=== PATIENT | male | born 1965 | race Caucasian/White ===

== ENCOUNTER 2016-11-20 09:36 | Emergency (ER) | payer OTHER ==
[~2016-11-20] VITALS: Ht 167.6 cm; Wt 78.0 kg
[2016-11-20 09:50] VITALS: Ht 167.6 cm; Wt 78.0 kg
[2016-11-20] MEDS ORDERED: ONDANSETRON 4 MG INJ IV STA (10:57)
[2016-11-20] MEDS ORDERED: SOD CHLORIDE 0.9% 1,000 ML IV STA (10:57)
[2016-11-20] MEDS ORDERED: KETOROLAC 30 MG INJ IV STA (10:57)
[2016-11-20 11:56] LABS: ADD SCAN DIFF NO
[2016-11-20 12:15] LABS: ALBUMIN 4.7 g/dl (3.3-4.9)
[2016-11-20 12:16] LABS: POTASSIUM 3.8 mmol/L (3.5-5.1)
[2016-11-20 12:18] LABS: ALBUMIN/GLOBULIN RATIO 1.38; BILIRUBIN,INDIRECT 0.3 mg/dl (0-1.1); BILIRUBIN,TOTAL 0.3 mg/dl (0.2-1.3); CREATININE 0.69 mg/dl (0.61-1.24); TOTAL PROTEIN 8.1 g/dl (6.1-8.1)
[2016-11-20 12:19] LABS: CALCIUM 9.2 mg/dl (8.4-10.2)
[2016-11-20 12:27] LABS: BASOPHILS % 0.4 % (0.0-2.0); EOSINOPHILS # 0.1 10^3/ul (0.0-0.5); EOSINOPHILS % 1.1 % (0.0-7.0); HEMATOCRIT 43.9 % (42.0-52.0); HEMOGLOBIN 14.7 g/dl (14.0-18.0); LYMPHOCYTES % 26.5 % (15.0-51.0); MEAN CORPUSCULAR HEMOGLOBIN 30.9 pg (29.0-33.0); MEAN CORPUSCULAR HGB CONC 33.5 g/dl (32.0-37.0); MEAN CORPUSCULAR VOLUME 92.2 fl (82.0-101.0); MEAN PLATELET VOLUME 10.1 fl (7.4-10.4); MONOCYTE # 0.6 10^3/ul (0.3-0.9); MONOCYTES % 8.4 % (0.0-11.0); NEUTROPHIL # 4.7 10^3/ul (1.6-7.5); NEUTROPHILS % 63.3 % (39.0-77.0); PLATELET COUNT 439 10^3/UL (140-415); RED BLOOD COUNT 4.76 10^6/ul (4.70-6.10); RED CELL DISTRIBUTION WIDTH 12.7 % (11.5-14.5); WHITE BLOOD COUNT 7.5 10^3/ul (4.8-10.8)
[2016-11-20 12:28] LABS: ADD UMIC NO; URINE BILIRUBIN (Dip) NEGATIVE (NEGATIVE); URINE BLOOD (Dip) NEGATIVE (NEGATIVE); URINE COLOR LT. YELLOW (YELLOW); URINE GLUCOSE (Dip) >=1000 % (NEGATIVE); URINE KETONES (Dip) NEGATIVE (NEGATIVE); URINE LEUKOCYTE ESTERASE (Dip) NEGATIVE (NEGATIVE); URINE NITRITE (Dip) NEGATIVE (NEGATIVE); URINE TOTAL PROTEIN (Dip) NEGATIVE (NEGATIVE); URINE UROBILINOGEN (Dip) 0.2 E.U./dL (0.1-1.0)
--- NOTE | 2016-11-20 13:28 | RADRPT ---
PROCEDURE: CT Abdomen and Pelvis without contrast. CLINICAL INDICATION: Abdominal pain. TECHNIQUE: CT scan of the abdomen and pelvis without contrast was performed on a multidetector hig h-resolution CT scanner. The patient was scanned without intravenous contrast. Coronal and sagittal reformatted images were obtained from the axial source images. Images were reviewed on a high-resol [employer] PACS workstation. One or more of the following dose reduction techniques were used: Automated exposure control, adjustment of the mA and/or kV according to patient size, use of iterative recon struction technique. The total exam CTDI equals 12.8 mGy and the total exam DLP equals 791.89 mGy-c m. COMPARISON: None. FINDINGS: CT abdomen: The lung bases are clear. The heart size is normal, without pericardial thickening or effusion. The liver is normal in size and density without focal mass or intrahepatic biliary dilatation. The spleen is normal in size and homogeneous in density. The stomach is grossly unremarkable. The panc reas as visualized is normal. The gallbladder and biliary tree are unremarkable and there is no seema dence for biliary dilatation. The adrenal glands are symmetric and normal. There is a 2 mm nonobst ructive calculus at the inferior pole of the right kidney. A small 1.4 cm hypodense lesion in the le ft kidney is consistent with a small cyst. There is a small 6 mm hypodense lesion in the superior p ole of the left kidney. Otherwise, the kidneys are symmetrically unremarkable as well. No obstruct emma uropathy or mass lesion is seen. The aorta is of normal caliber. There is no retroperitoneal lymphadenopathy. The dora hepatis reg ion is clear. The small bowel and mesentery, as visualized, are unremarkable. CT pelvis: The small bowel loops situated within the pelvis are unremarkable. The prostate is enlarged measuri ng 4.8 x 5.6 x 5.1 cm. The pelvic sidewalls and inguinal regions are clear. The sigmoid colon and rectum are unremarkable. The appendix is normal. No mass, lymphadenopathy, or free fluid is seen. N o acute inflammation is seen. There are small bilateral fat containing inguinal hernias. Degenerative changes are present throughout the lumbar spine, worst at L5 - S1 with posterior disk o steophyte complex, facet arthropathy, and uncovertebral degenerative changes resulting in severe coco ateral neural foraminal narrowing. No osteolytic or osteoblastic lesion is detected. IMPRESSION: 1. No abdominal or pelvic acute inflammatory process, mass, or lymphadenopathy. 2. Small nonobstructive right renal calculus. 3. Small hypodense left renal lesion likely representing a simple cyst. A small 6 mm hypodense lef t renal lesion may represent a hemorrhagic cyst. 4. Severe degenerative changes at the L5-S1 resulting in severe bilateral neural foraminal narrowin g. 5. Prostatomegaly. Correlate with PSA. 6. Small bilateral fat containing inguinal hernias. RPTAT: JJ .Sudarshan Doran MD, Date Time Electronically viewed and signed by .Sudarshan Doran MD, on 11/20/2016 13:28 .A/
--- NOTE | 2016-11-20 13:46 | ERD ---
ER Documentation Chief Complaint Date/Time DATE: 11/20/16 TIME: 13:38 Chief Complaint CAME IN VIA INTAKE DUE TO DIARRHEA HPI 51-year-old diabetic male presents complaining of nonbloody diarrhea that he has had for 4 days. He also admits to nausea and vomiting but is tolerating oral intake. Denies any dysuria hematuria or increased urinary frequency. Denies any change with food. Denies any blood in his stool or dark tarry stools. Denies any hemoptysis. Pain is mild in the abdomen and throbbing diffuse. ROS All systems reviewed and are negative except as per history of present illness. PMhx/Soc History of Surgery: No Anesthesia Reaction: No Hx Neurological Disorder: No Hx Respiratory Disorders: No Hx Cardiac Disorders: No Hx Psychiatric Problems: No Hx Miscellaneous Medical Probl: Yes (DM) Hx Alcohol Use: No Hx Substance Use: No Hx Tobacco Use: No Smoking Status: Never smoker FmHx Family History: diabetes Physical Exam Vitals Vital Signs Date Time Temp Pulse Resp B/P Pulse Ox O2 Delivery O2 Flow Rate FiO2 11/20/16 09:50 98.2 107 18 176/93 99 Physical Exam General: well developed, well nourished, alert, nontoxic, no distress Head: normocephalic, atraumatic Neck: Supple, nontender, no lymphadenopathy, no midline tenderness Oropharynx: no tonsilar erythema or edema, uvula midline, no exudates, no kissing tonsils, no drooling Respiratory: Clear to auscaultation bilaterally, speaks in full sentences, no use of accesory muscles or labored breathing, no rales, ronchi, or wheezing Cardiovascular: RRR, No murmurs GI: soft, mild diffuse tenderness, non distended, negative murphys sign, negative mcburneys point tenderness, no cva tenderness bilaterally, no rebound or guarding Back: no midline tenderness, no step offs or bony abnormalities, sensation to light touch in tact Extremities: moving all extremities normally, normal gait, no edema Result Diagram: 11/20/16 1125 11/20/16 1125 Results 24 hrs Laboratory Tests Test 11/20/16 11:25 White Blood Count 7.510^3/ul Red Blood Count 4.7610^6/ul Hemoglobin 14.7g/dl Hematocrit 43.9% Mean Corpuscular Volume 92.2fl Mean Corpuscular Hemoglobin 30.9pg Mean Corpuscular Hemoglobin Concent 33.5g/dl Red Cell Distribution Width 12.7% Platelet Count 76686^3/UL Mean Platelet Volume 10.1fl Neutrophils % 63.3% Lymphocytes % 26.5% Monocytes % 8.4% Eosinophils % 1.1% Basophils % 0.4% Nucleated Red Blood Cells % 0.0/100WBC Neutrophils # 4.710^3/ul Lymphocytes # 2.010^3/ul Monocytes # 0.610^3/ul Eosinophils # 0.110^3/ul Basophils # 0.010^3/ul Nucleated Red Blood Cells # 0.010^3/ul Urine Color LT. YELLOW Urine Clarity CLEAR Urine pH 6.0 Urine Specific [place] <=1.005 Urine Ketones NEGATIVE Urine Nitrite NEGATIVE Urine Bilirubin NEGATIVE Urine Urobilinogen 0.2 E.U./dL Urine Leukocyte Esterase NEGATIVE Urine Hemoglobin NEGATIVE Urine Glucose >=1000% Urine Total Protein NEGATIVE Sodium Level 132mmol/L Potassium Level 3.8mmol/L Chloride Level 92mmol/L Carbon Dioxide Level 26mmol/L Anion Gap 18 Blood Urea Nitrogen 8mg/dl Creatinine 0.69mg/dl Glucose Level 386mg/dl Calcium Level 9.2mg/dl Total Bilirubin 0.3mg/dl Direct Bilirubin 0.00mg/dl Indirect Bilirubin 0.3mg/dl Aspartate Amino Transf (AST/SGOT) 24IU/L Alanine Aminotransferase (ALT/SGPT) 30IU/L Alkaline Phosphatase 190IU/L Total Protein 8.1g/dl Albumin 4.7g/dl Globulin 3.40g/dl Albumin/Globulin Ratio 1.38 Lipase 345U/L Current Medications Medications (Trade) Dose Ordered Sig/Nam Route PRN Reason Start Time Stop Time Status Last Admin Dose Admin Sodium Chloride (NS) 1,000 ml @ 1,000 mls/hr Q1H STAT IV 11/20/16 10:57 11/20/16 11:56 DC 11/20/16 11:28 Ondansetron HCl (Zofran Inj) 4 mg ONCE STAT IV 11/20/16 10:57 11/20/16 10:59 DC 11/20/16 11:28 Ketorolac Tromethamine (Toradol) 30 mg ONCE STAT IV 11/20/16 10:57 11/20/16 10:59 DC 11/20/16 11:28 Procedures/MDM Diabetic male presents with nausea vomiting diarrhea. Laboratory examination is not consistent with DKA. He has no elevated white blood cell count. Urine is normal. Blood sugar 386. Sodium and chloride slightly low and lipase slightly elevated. CT showed the followin. No abdominal or pelvic acute inflammatory process, mass, or lymphadenopathy. 2. Small nonobstructive right renal calculus. 3. Small hypodense left renal lesion likely representing a simple cyst. A small 6 mm hypodense left renal lesion may represent a hemorrhagic cyst. 4. Severe degenerative changes at the L5-S1 resulting in severe bilateral neural foraminal narrowing. 5. Prostatomegaly. Correlate with PSA. 6. Small bilateral fat containing inguinal hernias. All of the labs and CT scan was reviewed with my supervising physician Dr. Dixon and we agree he is suitable for outpatient management. Symptoms are most likely due to viral gastroenteritis. Recommended this patient follow up with her primary care doctor within 48 hours or return to the emergency room for any worsening of symptoms. However this time I do believe there is suitable for outpatient management. I answered all their questions and they agreed with the plan and were discharged home. Departure Diagnosis: Primary Impression: Gastroenteritis Condition: Stable Patient Instructions: Gastroenteritis, Viral (6Y-Adult) Additional Instructions: Call your primary care doctor TOMORROW for an appointment during the next 1-2 days.See the doctor sooner or return here if your condition worsens before your appointment time. OZIEL MONTERO PA-C Nov 20, 2016 13:46
== END 2016-11-20 14:00 | disposition home or self-care (01) ==
LOC: FTE 09:36
DX: K52.9 Noninfective gastroenteritis and colitis, unspecified (principal); R11.2 Nausea with vomiting, unspecified; E11.9 Type 2 diabetes mellitus without complications
CPT/HCPCS: 36415; 74176; 80053; 81003; 83690; 85025; 96374; 96375; J1885; J2405; J7030; Z7502